=== PATIENT | female | born 1985 | race Caucasian/White ===

== ENCOUNTER 2019-01-24 15:12 | Emergency (ER) | payer BC, MEDICAID ==
[2019-01-24] MEDS ORDERED: Sodium Chloride 0.9% 10 ML Syringe FLUSH PRN ×2 (16:00→16:02)
[2019-01-24] MEDS ORDERED: Ketorolac 15 MG/ML SDV IVPUSH ONE (16:04)
[2019-01-24] MEDS ORDERED: HYDROmorphone 1 MG/ML Syringe IVPUSH ONE (16:04)
[2019-01-24] MEDS ORDERED: Sodium Chloride 0.9% 1,000 ML IV ONE (16:04)
[2019-01-24] MEDS ORDERED: Ondansetron 4 MG/2 ML SDV IVPUSH ONE (16:04)
[2019-01-24 16:36] LABS: CHLORIDE,CL 103 mmol/L (98-107); SODIUM,NA 141 mmol/L (136-145)
[2019-01-24 16:37] LABS: ANION GAP 12.7 mmol/L (10-20)
--- NOTE | 2019-01-24 17:19 | CT ---
[id number] CT/CT Abdomen Pelvis WO IV EXAM: ABDOMEN AND PELVIS CT WITHOUT CONTRAST INDICATION: Flank pain and hematuria. COMPARISON: None. DISCUSSION: There bladder appears mildly thick-walled and has surrounding fat stranding and there is mild bilateral periureteral stranding most suggestive of urinary tract infection, correlate with urinalysis. No hydronephrosis or renal-ureteral calculi are identified. Mild to moderate fatty infiltration of the liver. The ovaries are mildly prominent in size and contain multiple follicles which could be seen in the clinical context of polycystic ovarian syndrome. Small fat-containing umbilical hernia. Unenhanced images of the pancreas, gallbladder, spleen, adrenal glands, small bowel, large bowel, and the appendix are unremarkable. No adenopathy, free air free fluid. The osseous structures are unremarkable. IMPRESSION: 1. Bladder wall thickening, fat stranding around the urinary bladder and bilateral periureteral stranding suggest underlying urinary tract infection, correlate with urinalysis. No renal/ureteral calculus or hydronephrosis on either side. Fabrizio Nicholson MD 01/24/19 0839 Thank you for allowing us to participate in the care of your patient.
[2019-01-24] MEDS ORDERED: cefTRIAXone 2 GM Vial IVPUSH ONE (17:22)
[2019-01-24] MEDS ORDERED: Take Home: Nitrofurantoin Monohydrate/Macrocrystalline 100 MG, 2 Cap Pack PO ONE (17:25)
--- NOTE | 2019-01-25 14:01 | EDM.PDOC ---
ED HPI GENERAL MEDICAL PROBLEM - General Chief Complaint: Abdominal Pain Stated Complaint: ABDOMINAL PAIN Time Seen by Provider: 01/24/19 15:25 Source of Information: Reports: Patient History Limitations: Reports: No Limitations - History of Present Illness INITIAL COMMENTS - FREE TEXT/NARRATIVE: Pt. presents to ER with complaints of dysuria, lower abd. pain, and low back pain. Pt. states that she has been experiencing this for 2 days. She has been chilled and diaphoretic. No nausea, vomiting, or diarrhea. No chest pain or shortness of breath. Pt. states that the abdominal discomfort is diffuse along the lower abdomen. Denies any pyuria or hematuria. She complains of severe fatigue, global weakness, myalgias and arthralgias. Onset Date: 01/23/19 Location: Reports: Abdomen, Back, Generalized Quality: Reports: Ache Severity: Severe Lower Abdomen Pain Score (Numeric/FACES): 10 - Related Data Allergies Allergy/AdvReac Type Severity Reaction Status Date / Time vancomycin Allergy Hives Verified 01/24/19 15:29 Home Meds: Home Meds metFORMIN [Glucophage XR] 500 mg BID 01/24/19 [History] Past Medical History Cardiovascular History: Reports: Other (See Below) Other Cardiovascular History: leaking heart valves Endocrine/Metabolic History: Reports: Diabetes, Type II - Past Surgical History Female Surgical History: Reports: Other (See Below) Other Female Surgeries/Procedures: breast cellulitis Social & Family History - Tobacco Use Smoking Status *Q: Current Every Day Smoker Years of Tobacco use: 7 Packs/Tins Daily: 1 - Recreational Drug Use Recreational Drug Use: No ED ROS GENERAL - Review of Systems Review Of Systems: See Below Constitutional: Reports: Fever, Chills, Malaise, Fatigue HEENT: Reports: No Symptoms Respiratory: Reports: No Symptoms Cardiovascular: Reports: No Symptoms Endocrine: Reports: No Symptoms GI/Abdominal: Reports: Abdominal Pain : Reports: Dysuria, Pain. Denies: Hematuria Musculoskeletal: Reports: No Symptoms Skin: Reports: No Symptoms Neurological: Reports: No Symptoms Psychiatric: Reports: No Symptoms Hematologic/Lymphatic: Reports: No Symptoms Immunologic: Reports: No Symptoms ED EXAM, GENERAL - Physical Exam Exam: See Below Exam Limited By: No Limitations General Appearance: Alert, WD/WN, No Apparent Distress Throat/Mouth: Normal Inspection, Normal Lips, Normal Teeth, Normal Gums, Normal Oropharynx, Normal Voice, No Airway Compromise Head: Atraumatic, Normocephalic Neck: Normal Inspection, Supple, Non-Tender, Full Range of Motion Respiratory/Chest: No Respiratory Distress, Lungs Clear, Normal Breath Sounds, No Accessory Muscle Use, Chest Non-Tender Cardiovascular: Normal Peripheral Pulses, Regular Rate, Rhythm, No Edema, No Gallop, No JVD, No Murmur, No Rub Peripheral Pulses: 4+: Radial (R) GI/Abdominal: Normal Bowel Sounds, Soft, Non-Tender, No Organomegaly, No Distention, No Mass (Female) Exam: Deferred Rectal (Female) Exam: Deferred Back Exam: Normal Inspection, Full Range of Motion, Paraspinal Tenderness Extremities: Normal Inspection, Normal Range of Motion, Non-Tender, No Pedal Edema, Normal Capillary Refill Neurological: Alert, Oriented, CN II-XII Intact, Normal Cognition, Normal Gait, Normal Reflexes Psychiatric: Normal Affect, Anxious Skin Exam: Warm, Dry, Intact, Normal Color Course - Vital Signs Last Recorded V/S: Last Vital Signs Temp 36.4 C 01/24/19 15:12 Pulse 93 01/24/19 15:12 Resp 16 01/24/19 15:12 BP 135/77 01/24/19 15:12 Pulse Ox 98 01/24/19 15:12 - Orders/Labs/Meds Orders: Active Orders 24 hr Category Date Time Status CULTURE URINE [RM] Stat Lab 01/24/19 15:25 Received Peripheral IV Insertion Adult [OM.PC] Routine Oth 01/24/19 16:01 Ordered Labs: Laboratory Tests 01/24/19 01/24/19 01/24/19 Range/Units 15:25 15:25 16:10 WBC 10.7 H (4.0-10.0) x10^3/uL RBC 4.62 (4.00-5.50) x10^6/uL Hgb 14.7 (12.0-16.0) g/dL Hct 42.7 (33.0-47.0) % MCV 92.4 (78.0-93.0) fL MCH 31.8 (26.0-32.0) pg MCHC 34.4 (32.0-36.0) g/dL RDW Coeff of [place] 12.0 (10.0-15.0) % Plt Count 258 (130-400) x10^3/uL Neut % (Auto) 71.0 (50.0-80.0) % Lymph % (Auto) 15.7 L (25.0-50.0) % [place] % (Auto) 9.3 (2.0-11.0) % Eos % (Auto) 3.7 (0.0-4.0) % Baso % (Auto) 0.3 (0.2-1.2) % PT (10.0-12.8) SEC INR (2.0-3.5) Sodium (136-145) mmol/L Potassium (3.5-5.1) mmol/L Chloride (98-107) mmol/L Carbon Dioxide (21-32) mmol/L Anion Gap (10-20) mmol/L BUN (7-18) mg/dL Creatinine (0.55-1.02) mg/dL Est Cr Clr Drug Dosing mL/min Estimated GFR (MDRD) Glucose (74-106) mg/dL Calcium (8.5-10.1) mg/dL Corrected Calcium (8.5-10.1) mg/dL Total Bilirubin (0.2-1.0) mg/dL AST (15-37) U/L ALT (14-59) U/L Alkaline Phosphatase (46-116) U/L Total Protein (6.4-8.2) g/dL Albumin (3.4-5.0) g/dL Globulin Albumin/Globulin Ratio Urine Color Yellow (YELLOW) Urine Appearance Turbid H (CLEAR) Urine pH 8.5 H (5.0-8.0) Ur Specific [place] 1.020 Urine Protein 30 H (NEGATIVE) mg/dL Urine Glucose (UA) Negative (NEGATIVE) mg/dL Urine Ketones Negative (NEGATIVE) mg/dL Urine Occult Blood Moderate H (NEGATIVE) Urine Nitrite Negative (NEGATIVE) Urine Bilirubin Negative (NEGATIVE) Urine Urobilinogen 0.2 (0.2) EU/dL Ur Leukocyte Esterase Trace H (NEGATIVE) Urine RBC 5-10 H (NOT SEEN) /HPF Urine WBC 0-5 (NOT SEEN) /HPF Ur Squamous Epith Cells Rare (NEGATIVE) /HPF Amorphous Sediment Many Urine Bacteria Few H (NEGATIVE) /HPF Urine Mucus Few H (NEGATIVE) /LPF Urine HCG, Qual Negative (NEGATIVE) 01/24/19 01/24/19 Range/Units 16:10 16:10 WBC (4.0-10.0) x10^3/uL RBC (4.00-5.50) x10^6/uL Hgb (12.0-16.0) g/dL Hct (33.0-47.0) % MCV (78.0-93.0) fL MCH (26.0-32.0) pg MCHC (32.0-36.0) g/dL RDW Coeff of [place] (10.0-15.0) % Plt Count (130-400) x10^3/uL Neut % (Auto) (50.0-80.0) % Lymph % (Auto) (25.0-50.0) % [place] % (Auto) (2.0-11.0) % Eos % (Auto) (0.0-4.0) % Baso % (Auto) (0.2-1.2) % PT 9.5 L (10.0-12.8) SEC INR 0.8 L (2.0-3.5) Sodium 141 (136-145) mmol/L Potassium 3.7 (3.5-5.1) mmol/L Chloride 103 (98-107) mmol/L Carbon Dioxide 29 (21-32) mmol/L Anion Gap 12.7 (10-20) mmol/L BUN 10 (7-18) mg/dL Creatinine 0.7 (0.55-1.02) mg/dL Est Cr Clr Drug Dosing 101.90 mL/min Estimated GFR (MDRD) > 60 Glucose 108 H (74-106) mg/dL Calcium 9.0 (8.5-10.1) mg/dL Corrected Calcium 9.40 (8.5-10.1) mg/dL Total Bilirubin 0.3 (0.2-1.0) mg/dL AST 16 (15-37) U/L ALT 36 (14-59) U/L Alkaline Phosphatase 79 (46-116) U/L Total Protein 7.2 (6.4-8.2) g/dL Albumin 3.5 (3.4-5.0) g/dL Globulin 3.7 Albumin/Globulin Ratio 0.95 Urine Color (YELLOW) Urine Appearance (CLEAR) Urine pH (5.0-8.0) Ur Specific [place] Urine Protein (NEGATIVE) mg/dL Urine Glucose (UA) (NEGATIVE) mg/dL Urine Ketones (NEGATIVE) mg/dL Urine Occult Blood (NEGATIVE) Urine Nitrite (NEGATIVE) Urine Bilirubin (NEGATIVE) Urine Urobilinogen (0.2) EU/dL Ur Leukocyte Esterase (NEGATIVE) Urine RBC (NOT SEEN) /HPF Urine WBC (NOT SEEN) /HPF Ur Squamous Epith Cells (NEGATIVE) /HPF Amorphous Sediment Urine Bacteria (NEGATIVE) /HPF Urine Mucus (NEGATIVE) /LPF Urine HCG, Qual (NEGATIVE) Meds: Medications Discontinued Medications Generic Name Dose Route Start Last Admin Trade Name Freq PRN Reason Stop Dose Admin Ceftriaxone Sodium 2 gm 01/24/19 17:22 01/24/19 17:33 Rocephin IVPUSH 01/24/19 17:23 2 gm STAT ONE Administration Hydromorphone HCl 1 mg 01/24/19 16:04 01/24/19 16:18 Dilaudid IVPUSH 01/24/19 16:05 1 mg ONETIME ONE Administration Sodium Chloride 1,000 mls @ 1,000 mls/hr 01/24/19 16:04 01/24/19 16:15 Normal Saline IV 01/24/19 17:03 1,000 mls/hr .BOLUS ONE Administration Ketorolac Tromethamine 15 mg 01/24/19 16:04 01/24/19 16:19 Toradol IVPUSH 01/24/19 16:05 15 mg ONETIME ONE Administration Nitrofurantoin Macrocrystals 2 packet 01/24/19 17:25 01/24/19 17:33 Take Home: Nitrofur [place]/Ma 100 Mg, 2 Pack PO 01/24/19 17:26 2 packet ONETIME ONE Administration Ondansetron HCl 4 mg 01/24/19 16:04 01/24/19 16:16 Zofran IVPUSH 01/24/19 16:05 4 mg ONETIME ONE Administration Sodium Chloride 10 ml 01/24/19 16:00 Saline Flush FLUSH ASDIRECTED PRN Keep Vein Open Sodium Chloride 10 ml 01/24/19 16:02 Saline Flush FLUSH ASDIRECTED PRN Keep Vein Open - Radiology Interpretation Free Text/Narrative:: CT abd/pelvis obtained. Evidence of UTI. No stones. No obvious pyelo. Departure - Departure Time of Disposition: 17:40 Disposition: Home, Self-Care 01 Condition: Good Clinical Impression: UTI (urinary tract infection) - Discharge Information Instructions: Nitrofurantoin tablets or capsules, Urinary Tract Infection, Adult, Probiotics Referrals: PCP,None [Primary Care Provider] - Forms: ED Department Discharge Additional Instructions: Macrobid 100mg 1 twice daily for 10 days Drink plenty of fluids Ibuprofen 200mg 3 tabs every 6 hours as needed for pain Follow-up in clinic in 10-14 days for recheck. - My Orders Last 24 Hours: My Active Orders 01/24/19 15:25 CULTURE URINE [RM] Stat 01/24/19 16:01 Peripheral IV Insertion Adult [OM.PC] Routine - Assessment/Plan Last 24 Hours: My Active Orders 01/24/19 15:25 CULTURE URINE [RM] Stat 01/24/19 16:01 Peripheral IV Insertion Adult [OM.PC] Routine Plan: Macrobid 100mg 1 twice daily for 10 days Drink plenty of fluids Ibuprofen 200mg 3 tabs every 6 hours as needed for pain Follow-up in clinic in 10-14 days for recheck.
== END 2019-01-24 17:40 | disposition home or self-care (01) ==
LOC: VM.ED 15:12
DX: N39.0 Urinary tract infection, site not specified (principal); E11.9 Type 2 diabetes mellitus without complications; Z79.84 Long term (current) use of oral hypoglycemic drugs; Z88.1 Allergy status to other antibiotic agents
CPT/HCPCS: 74176; 80053; 81001; 81025; 85025; 85610; 87086; 87088; 87186; 96361; 96374; 96375; 99284-25; A9270-GY; J0696; J1170; J1885; J2405; J7030

== ENCOUNTER 2019-08-31 09:21 | Emergency (ER) | payer BC, MEDICAID ==
--- NOTE | 2019-08-31 10:03 | EDM.PDOC ---
ED HPI GENERAL MEDICAL PROBLEM - General Chief Complaint: ETL CONSULTANT Problem Stated Complaint: PAIN IN ABDOMEN, LEFT SIDE Time Seen by Provider: 08/31/19 09:28 Source of Information: Reports: Patient History Limitations: Reports: No Limitations - History of Present Illness INITIAL COMMENTS - FREE TEXT/NARRATIVE: Pt. presents to ER with vaginal bleeding. She states that she has used 3 tampons in an hour and a half. Denies expelling any clots or tissue. States that her LMP was 2 months ago. She states that her menses are often irregular. She states that she has a history of PCOS. She states that she does not normally have heavy menses. Pt. is sexually active. She last had intercourse yesterday but was not experiencing any discomfort and denies any trauma. She states that she did not have any bleeding following the encounter. Pt. states that she is not using any control of any kind. Denies any fever or chills. Complains of cramping to L side of her abdomen. Onset: Today Location: Reports: Abdomen Quality: Reports: Ache Severity: Moderate Left Lower Abdomen Pain Score (Numeric/FACES): 7 - Related Data Allergies Allergy/AdvReac Type Severity Reaction Status Date / Time vancomycin Allergy Hives Verified 08/31/19 09:38 Home Meds: Home Meds . 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 Denies: Other (vag bleeding) Musculoskeletal: Reports: No Symptoms Skin: Reports: No Symptoms Neurological: Reports: No Symptoms Psychiatric: Reports: No Symptoms Hematologic/Lymphatic: Reports: No Symptoms Immunologic: Reports: No Symptoms ED EXAM, GENERAL - Physical Exam Exam: See Below Exam Limited By: No Limitations General Appearance: Alert, WD/WN, No Apparent Distress Respiratory/Chest: No Respiratory Distress, No Accessory Muscle Use Cardiovascular: Normal Peripheral Pulses, Regular Rate, Rhythm, No JVD Peripheral Pulses: 4+: Radial (L) GI/Abdominal: Soft, Non-Tender, No Distention, No Mass (Female) Exam: Cervical Dilatation, Other (small amount of blood along posterior vaginal wall. Blood appears to be coming from the cervix. No obvious vaginal trauma noted. No tissue or clots noted. Pt. has mild increased discomfort to area of L adnexa. No cervical motion tenderness. No discharge.) Rectal (Female) Exam: Deferred Extremities: Normal Inspection, Normal Range of Motion, Non-Tender, Normal Capillary Refill Neurological: Alert, Oriented, CN II-XII Intact, Normal Gait, No Motor/Sensory Deficits Psychiatric: Normal Affect, Normal Mood Skin Exam: Warm, Dry, Intact, Normal Color, No Rash Lymphatic: No Adenopathy Course - Vital Signs Last Recorded V/S: Last Vital Signs Temp 37.1 C 08/31/19 09:28 Pulse 77 08/31/19 09:28 Resp 18 08/31/19 09:28 BP 124/66 08/31/19 09:28 Pulse Ox 100 08/31/19 09:28 - Orders/Labs/Meds Labs: Laboratory Tests 08/31/19 08/31/19 08/31/19 Range/Units 09:55 09:55 10:06 WBC 6.5 (4.0-10.0) x10^3/uL RBC 4.63 (4.00-5.50) x10^6/uL Hgb 14.7 (12.0-16.0) g/dL Hct 42.0 (33.0-47.0) % MCV 90.7 (78.0-93.0) fL MCH 31.7 (26.0-32.0) pg MCHC 35.0 (32.0-36.0) g/dL RDW Coeff of [place] 12.0 (10.0-15.0) % Plt Count 279 (130-400) x10^3/uL Neut % (Auto) 61.0 (50.0-80.0) % Lymph % (Auto) 25.7 (25.0-50.0) % [place] % (Auto) 8.7 (2.0-11.0) % Eos % (Auto) 4.1 H (0.0-4.0) % Baso % (Auto) 0.5 (0.2-1.2) % PT (10.0-12.8) SEC INR (2.0-3.5) Sodium (136-145) mmol/L Potassium (3.5-5.1) mmol/L Chloride (98-107) mmol/L Carbon Dioxide (21-32) mmol/L Anion Gap (10-20) mmol/L BUN (7-18) mg/dL Creatinine (0.55-1.02) mg/dL Est Cr Clr Drug Dosing Estimated GFR (MDRD) Glucose (74-106) mg/dL Calcium (8.5-10.1) mg/dL Corrected Calcium (8.5-10.1) mg/dL Total Bilirubin (0.2-1.0) mg/dL AST (15-37) U/L ALT (14-59) U/L Alkaline Phosphatase (46-116) U/L C-Reactive Protein (<=0.9) mg/dL Total Protein (6.4-8.2) g/dL Albumin (3.4-5.0) g/dL Globulin Albumin/Globulin Ratio Urine Color Yellow (YELLOW) Urine Appearance Slightly cloudy H (CLEAR) Urine pH 5.0 (5.0-8.0) Ur Specific [place] >=1.030 Urine Protein Negative (NEGATIVE) mg/dL Urine Glucose (UA) Negative (NEGATIVE) mg/dL Urine Ketones Negative (NEGATIVE) mg/dL Urine Occult Blood Moderate H (NEGATIVE) Urine Nitrite Negative (NEGATIVE) Urine Bilirubin Negative (NEGATIVE) Urine Urobilinogen 0.2 (0.2) EU/dL Ur Leukocyte Esterase Negative (NEGATIVE) Urine RBC 10-20 H (NOT SEEN) /HPF Urine WBC 0-5 (NOT SEEN) /HPF Ur Squamous Epith Cells Few H (NEGATIVE) /HPF Urine Bacteria Rare (NEGATIVE) /HPF Urine Mucus Occasional H (NEGATIVE) /LPF POC Urine HCG, Qual Negative (NEGATIVE) 08/31/19 08/31/19 Range/Units 10:06 10:06 WBC (4.0-10.0) x10^3/uL RBC (4.00-5.50) x10^6/uL Hgb (12.0-16.0) g/dL Hct (33.0-47.0) % MCV (78.0-93.0) fL MCH (26.0-32.0) pg MCHC (32.0-36.0) g/dL RDW Coeff of [place] (10.0-15.0) % Plt Count (130-400) x10^3/uL Neut % (Auto) (50.0-80.0) % Lymph % (Auto) (25.0-50.0) % [place] % (Auto) (2.0-11.0) % Eos % (Auto) (0.0-4.0) % Baso % (Auto) (0.2-1.2) % PT 9.9 L (10.0-12.8) SEC INR 0.9 L (2.0-3.5) Sodium 143 (136-145) mmol/L Potassium 4.0 (3.5-5.1) mmol/L Chloride 107 (98-107) mmol/L Carbon Dioxide 24 (21-32) mmol/L Anion Gap 16.0 (10-20) mmol/L BUN 10 (7-18) mg/dL Creatinine 0.7 (0.55-1.02) mg/dL Est Cr Clr Drug Dosing TNP Estimated GFR (MDRD) > 60 Glucose 108 H (74-106) mg/dL Calcium 8.6 (8.5-10.1) mg/dL Corrected Calcium 8.76 (8.5-10.1) mg/dL Total Bilirubin 0.6 (0.2-1.0) mg/dL AST 16 (15-37) U/L ALT 35 (14-59) U/L Alkaline Phosphatase 64 (46-116) U/L C-Reactive Protein < 0.2 (<=0.9) mg/dL Total Protein 7.6 (6.4-8.2) g/dL Albumin 3.8 (3.4-5.0) g/dL Globulin 3.8 Albumin/Globulin Ratio 1.00 Urine Color (YELLOW) Urine Appearance (CLEAR) Urine pH (5.0-8.0) Ur Specific [place] Urine Protein (NEGATIVE) mg/dL Urine Glucose (UA) (NEGATIVE) mg/dL Urine Ketones (NEGATIVE) mg/dL Urine Occult Blood (NEGATIVE) Urine Nitrite (NEGATIVE) Urine Bilirubin (NEGATIVE) Urine Urobilinogen (0.2) EU/dL Ur Leukocyte Esterase (NEGATIVE) Urine RBC (NOT SEEN) /HPF Urine WBC (NOT SEEN) /HPF Ur Squamous Epith Cells (NEGATIVE) /HPF Urine Bacteria (NEGATIVE) /HPF Urine Mucus (NEGATIVE) /LPF POC Urine HCG, Qual (NEGATIVE) Meds: Medications Discontinued Medications Generic Name Dose Route Start Last Admin Trade Name Windy PRN Reason Stop Dose Admin Midazolam HCl 4 mg 08/31/19 12:48 Versed 1 Mg/Ml IVPUSH 08/31/19 12:49 ONETIME ONE Rocuronium Lamont 50 mg 08/31/19 12:48 Zemuron IVPUSH 08/31/19 12:49 NOW ONE Departure - Departure Time of Disposition: 12:24 Disposition: Home, Self-Care 01 Clinical Impression: Dysmenorrhea - Discharge Information Instructions: Dysmenorrhea, [id number] Referrals: PCP,Unknown [Ordering Only Provider] - Forms: ED Department Discharge Additional Instructions: If you are still having discomfort tomorrow, call the ER at [phone] and I will schedule you for a pelvic ultrasound on . Given your history of PCOS, is it possible that the cause of the discomfort and bleeding is a ruptured cyst. Your test is negative. Return to ER if worsening discomfort, fever, chills, or increased bleeding. Sepsis Event Note - Evaluation Sepsis Screening Result: No Definite Risk - Focused Exam Date Exam was Performed: 09/01/19 Time Exam was Performed: 00:24 - Assessment/Plan Plan: If you are still having discomfort tomorrow, call the ER at [phone] and I will schedule you for a pelvic ultrasound on . Given your history of PCOS, is it possible that the cause of the discomfort and bleeding is a ruptured cyst. Your test is negative. Return to ER if worsening discomfort, fever, chills, or increased bleeding.
[2019-08-31 10:35] LABS: CHLORIDE,CL 107 mmol/L (98-107); SODIUM,NA 143 mmol/L (136-145)
[2019-08-31] MEDS ORDERED: Rocuronium 50 MG/5 ML Vial IVPUSH ONE (12:48)
[2019-08-31] MEDS ORDERED: Midazolam 1 MG/ML 2 ML SDV IVPUSH ONE (12:48)
== END 2019-08-31 13:10 | disposition home or self-care (01) ==
LOC: VM.ED 09:21
DX: N94.6 Dysmenorrhea, unspecified (principal); I10 Essential (primary) hypertension; E11.9 Type 2 diabetes mellitus without complications; Z88.1 Allergy status to other antibiotic agents
CPT/HCPCS: 36415; 80053; 81001; 81025; 85025; 85610; 86140; 99283-GF; 99284